=== PATIENT | female | born 2000 | race Two or more races ===

== ENCOUNTER 2025-08-16 10:10 | Emergency (ER) | payer OTHER ==
[~2025-08-16] VITALS: Ht 165.1 cm; Wt 61.2 kg
[2025-08-16 11:54] LABS: BASO % 0.3 % (0.1-1.2); EOS # 0.01 (0.04-0.54); EOS % 0.2 % (0.7-7.0); LYMPH # 2.30 (1.18-3.74); LYMPH % 37.5 % (19.3-53.1); MEAN PLATELET VOLUME 10.10 fl (9.4-12.4); MONO # 0.42 (0.24-0.82); MONO % 6.9 % (4.7-12.5); NEUT # 3.37 (1.56-6.13); NEUT % 54.9 % (34.0-71.1); RED CELL DISTRIBUTION WIDTH 11.9 % (11.6-14.4)
[2025-08-16] MEDS ORDERED: CEFTRIAXONE SODIUM 1,000 MG VIAL IM ONE (13:15)
[2025-08-16] MEDS ORDERED: CEFTRIAXONE SODIUM 1,000 MG VIAL ONE (13:21)
[2025-08-16] MEDS ORDERED: LIDOCAINE HCL 1% 10ML VIAL ONE (13:22)
== END 2025-08-16 13:43 | disposition home or self-care (01) ==
LOC: ER 10:11
PROVIDERS: General Practice
DX: R22.0 Localized swelling, mass and lump, head (principal)